=== PATIENT | female | born 1990 | race Two or more races ===

== ENCOUNTER 2017-05-04 10:24 | Emergency (ER) | payer OTHER ==
[2017-05-04 10:32] VITALS: BP 139/83; PULSE 92; TEMP 98.9; BMI 29.5
--- NOTE | 2017-05-04 10:37 | PDOC ---
History of Present Illness - General Chief Complaint: Vaginal Bleeding Stated Complaint: BLEEDING (11 WKS ) Time Seen by Provider: 05/04/17 10:36 - History of Present Illness Initial Comments: 26yo woman 11 weeks who presents with painless vaginal bleeding and mild abdominal cramping since this morning. LMP 02/13/17. Patient saw her BOAT CARP[employer] MECH[employer]IC (Dr. Elizalde) yesterday and reports everything was normal, including U/S performed. She woke-up this morning to use the restroom when she noticed a large clump of dark blood in the toilet similar to what she passes during menstruation. She went back to bed and later had a some small amount of vaginal spotting. Reports some mild cramps while driving to the ED. Also reports some intermittent spotting about 1 month ago. Denies fever, chills, back pain, dysuria. Past History - Past Medical History Allergies/Adverse Reactions: Allergies Allergy/AdvReac Type Severity Reaction Status Date / Time No Known Allergies Allergy Verified 05/04/17 10:32 Home Medications: Ambulatory Orders Vits #93/Iron Fum/FA [ Formula Tablet] 1 each PO DAILY COPD: No - Suicide/Smoking/Psychosocial Hx Smoking History: Never smoked Hx Alcohol Use: No Drug/Substance Use Hx: No Substance Use Type: None *Physical Exam - Vital Signs Last Vital Signs Temp Pulse Resp BP Pulse Ox 98.9 F 92 H 20 139/83 99 05/04/17 10:30 05/04/17 10:30 05/04/17 10:30 05/04/17 10:30 05/04/17 10:30 - Physical Exam General Appearance: Yes: Nourished, Appropriately Dressed. No: Apparent Distress Neck: positive: Supple Respiratory/Chest: positive: Lungs Clear, Normal Breath Sounds. negative: Chest Tender Cardiovascular: positive: Regular Rhythm, Regular Rate, S1, S2 Female Pelvic Exam: positive: cervical os closed, normal adnexa, normal size ovaries. negative: CMT Gastrointestinal/Abdominal: positive: Soft Extremity: negative: Pedal Edema, Swelling Neurologic: positive: Fully Oriented, Alert, Normal Mood/Affect ED Treatment Course - LABORATORY CBC & Chemistry Diagram: 05/04/17 10:24 05/04/17 10:24 - RADIOLOGY Radiology Studies Ordered: 05/04/17 12:02 EXAM#: TYPE/EXAM: RESULT: [id number] US/ <14WKS US Exam: Ultrasound <14 weeks. Indication: 11 weeks , with vaginal bleeding. Technique: Real-time grayscale sonogram of the pelvis was performed by the technologist utilizing transabdominal approach only. M-mode was utilized to assess heart rate. Limited usage of color Doppler and spectral Doppler was performed on the adnexal regions. Images are submitted for review. Comparison: None. Findings: There is a single live intrauterine gestation. Perrin-rump length of the pole measures 4.1 cm which corresponds to gestational age of 11 weeks and 0 days. heart rate measures approximately 176 bpm. The uterus measures 11.3 x 8.1 x 9.1 cm. No free fluid identified in the cul- de-sac. The ovaries are normal in size with arterial flow. The right ovary measures 3.9 x 3.8 x 1.8 cm. The left ovary measures 3.7 x 3.0 x 2.9 cm. Impression: Single live intrauterine gestation with biometry as above, concordant with the provided dates. Reported By: Ibrahima Benites DO 05/04/17 1157 Medical Decision Making - Medical Decision Making 05/04/17 11:14 26yo (1 spontaneous miscarriage, 1 Med AB) who presents 11 weeks with acute onset of painless vaginal bleeding and abdominal pain. On exam, her cervical OS was closed and vaginal vault was absent of blood. Differential includes, but not limited to threatened vs missed vs placenta previa. Will order CBC, CMP, beta-HCG, UA, U Cx. TVUS to assess fetus. 05/04/17 11:22 Repeat BP 130/77, HR 72 05/04/17 12:03 TVUS reassuring for single live intrauterine , HR 176, crown to rump length 4.1cm c/w 11 wks gestational age. No free fluid in cul-de-sac, ovaries normal size with arterial flow. No leukocytosis on CBC. CMP and T&S still pending. 05/04/17 12:16 Dr. Elizalde notified of ED visit and U/S results. Patient will f/u in Dr. Elizalde's office on Saturday at 11am to repeat ultrasound. 05/04/17 14:13 05/04/17 11:20 Blood Type O POSITIVE Antibody Screen Negative T&S revealed O positive, Antibody negative. Will not require Rhogam. All imaging and laboratory results discussed with the patient. Her vital signs are stable, and she has had no further episodes of vaginal bleeding or abdominal pain. Patient will be discharged home and follow-up at Dr. Elizalde' s office for repeat Ultrasound on 05/10. *DC/Admit/Observation/Transfer Diagnosis at time of Disposition: Vaginal bleeding before 22 weeks gestation - Discharge Dispostion Disposition: HOME Condition at time of disposition: Stable Admit: No - Referrals Referrals: Jen Elizalde MD [Staff Physician] - - Patient Instructions Printed Discharge Instructions: DI for Vaginal Bleeding During Additional Instructions: Your ultrasound was normal. Please go to Dr. Elizalde's office on Saturday, at 11AM for a repeat ultrasound. Please return to the Emergency Department if you have increased vaginal bleeding , increased abdominal pain, pelvic pain, fever, chills, or new or concerning symptoms. - Post Discharge Activity
--- NOTE | 2017-05-04 11:16 | PDOC ---
Attending Attestation - Resident Resident Name: Ruthie Lama - ED Attending Attestation I have performed the following: I have examined & evaluated the patient, The case was reviewed & discussed with the resident, I agree w/resident's findings & plan, Exceptions are as noted - HPI HPI: 05/04/17 11:04 26yo F 11 weeks (followed by Dr. Elizalde) p/w vaginal bleeding since this morning. The patient reports she is to bathroom and then noticed some dark red blood that looks like her menstrual period. She reports that she put on a pad and an hour later noticed some spotting which prompted her to come to the emergency department. She also reports suprapubic abdominal cramping that she rates at a 4 out of 10. She denies any symptoms recently of fevers, chills, chest pain, shortness of breath, headache, focal weakness or numbness. She had an evaluation with Dr. Elizalde yesterday where she was told everything was normal. The patient reports that she had a episode of vaginal spotting one month ago and that She found out she was . - Physicial Exam PE: 05/04/17 11:16 GENERAL: Awake, alert, and fully oriented, in no acute distress HEAD: No signs of trauma EYES: PERRLA, EOMI, sclera anicteric, conjunctiva clear ENT: Auricles normal inspection, hearing grossly normal, nares patent, oropharynx clear without exudates. Moist mucosa NECK: Normal ROM, supple, no lymphadenopathy, JVD, or masses LUNGS: Breath sounds equal, clear to auscultation bilaterally. No wheezes, and no crackles HEART: Regular rate and rhythm, normal S1 and S2, no murmurs, rubs or gallops ABDOMEN: Soft, nontender, normoactive bowel sounds. No guarding, no rebound. No masses RETAIL MANAGEMENT TRAINEE: agree with resident exam. EXTREMITIES: Normal range of motion, no edema. No clubbing or cyanosis. No cords, erythema, or tenderness NEUROLOGICAL: Normal speech, cranial nerves intact, negative pronator drift, 5/ 5 strength in all 4 extremities, normal sensation to light touch in all 4 extremities, normal cerebellar exam, normal gait, normal reflexes and tone SKIN: Warm, Dry, normal turgor, no rashes or lesions noted. - Medical Decision Making 05/04/17 11:00 26-year-old female 11 weeks presents with vaginal bleeding and abdominal cramping. Cervix is closed on exam. Differential includes spontaneous vs placenta previa. Blood pressure 139 systolic, will recheck. Plan: -labs -type and screen -TVUS 05/04/17 11:21 Repeat BP 130/77. Will continue to monitor 05/04/17 13:10 Labs unremarkable. Transvaginal ultrasound with normal , heart rate 170s. No evidence of placenta previa. Case discussed with Dr. Elizalde, he recommends that we discharge that patient and have her follow-up with her next week. The patient has had no further bleeding in the emergency department. Repeat blood pressure is 126/80. Currently her type and screen and urinalysis is pending. Will continue to follow up on those studies, then likely discharge. 05/04/17 14:32 UA negative for infection. Type and screen O+. Patient with no further bleeding. We'll discharge to follow-up with Dr. Elizalde next week. I discussed the physical exam findings, ancillary test results and final diagnoses with the patient. I answered all of the patient's questions. The patient was satisfied with the care received and felt comfortable with the discharge plan and treatment plan. The patient will call their primary care physician within 24 hours to arrange follow-up and will return to the Emergency Department with any new, persistent or worsening symptoms.
[2017-05-04 11:51] LABS: BASOPHIL 0.2 % (0-2.0); EOSINOPHIL 0.7 % (0-4.5); MCH 28.7 pg (25.7-33.7); MCHC 32.8 g/dl (32.0-36.0); MEAN CELL VOLUME 87.3 fl (80-96); MEAN PLT VOLUME 8.3 fl (7.5-11.1); NEUTROPHILS 67.7 % (42.8-82.8); PLATELET COUNT 175 K/MM3 (134-434); RDW 15.4 % (11.6-15.6); WHITE BLOOD COUNT 7.7 K/mm3 (4.0-10.0)
[2017-05-04 12:12] LABS: ALBUMIN 3.4 g/dl (3.4-5.0); ANION GAP 8 (8-16); CALCIUM 8.8 mg/dL (8.5-10.1); CO2 24 mmol/L (21-32); GLUCOSE,RANDOM 98 mg/dL (74-106)
[2017-05-04 12:17] LABS: ALK PHOS 54 U/L (45-117); BILIRUBIN,TOTAL 0.3 mg/dL (0.2-1.0); CREATININE 0.6 mg/dL (0.55-1.02); SGOT/AST 14 U/L (15-37); SGPT/ALT 21 U/L (12-78); TOT PROT 7.4 g/dl (6.4-8.2)
[2017-05-04 13:12] LABS: URINE APPEARANCE CLEAR; URINE BILIRUBIN NEGATIVE (NEGATIVE); URINE BLOOD NEGATIVE (NEGATIVE); URINE COLOR LTYELLOW; URINE GLUCOSE (UA) NEGATIVE (NEGATIVE); URINE KETONE NEGATIVE (NEGATIVE); URINE LEUK ESTERASE NEGATIVE (NEGATIVE); URINE NITRITE NEGATIVE (NEGATIVE); URINE PROTEIN NEGATIVE (NEGATIVE); URINE UROBILINOGEN NEGATIVE mg/dL (0.2-1.0)
[2017-05-04 18:08] LABS: URINE LEUK ESTERASE Negative (NEGATIVE)
== END 2017-05-04 14:45 | disposition home or self-care (01) ==
LOC: JER 10:24
DX: O20.8 Other hemorrhage in early pregnancy (principal); Z3A.11 11 weeks gestation of pregnancy
CPT/HCPCS: 36415; 76801-TC; 80053; 81003; 84702; 85025; 86850; 86900; 86901; 87086; 99284-25

== ENCOUNTER 2018-03-28 14:57 | Emergency (ER) | payer OTHER ==
[2018-03-28 15:05] VITALS: BP 139/82; PULSE 88; TEMP 97.1; BMI 32.3
--- NOTE | 2018-03-28 15:05 | PDOC ---
Rapid Medical Evaluation Time Seen by Provider: 03/28/18 15:01 Medical Evaluation: Allergies Allergy/AdvReac Type Severity Reaction Status Date / Time No Known Allergies Allergy Verified 11/22/17 19:05 03/28/18 15:01 Pt presents for evaluation of her scar. Pt states she gave via c -section four months ago. Approxiamtely 3 months ago the scar opened. She states she had been going to her ob for care, but the scar still hasn't closed. Reports green/yellow, foul smelling discharge from the scar. Exam: afebrile, AAOX3, NAD Orders: labs, urine Pt to proceed to the ED for further evaluation Discharge Disposition - Diagnosis Wound infection - Referrals - Patient Instructions - Post Discharge Activity
[2018-03-28 15:38] LABS: BASO % 0.4 % (0-2.0); EOS % 0.7 % (0-4.5); HEMATOCRIT 40.9 % (32.4-45.2); HEMOGLOBIN 13.8 GM/dL (10.7-15.3); LYMPH % 26.3 % (8-40); MCH 29.1 pg (25.7-33.7); MCHC 33.9 g/dl (32.0-36.0); MEAN CELL VOLUME 85.9 fl (80-96); MEAN PLT VOLUME 8.5 fl (7.5-11.1); MONO % 6.4 % (3.8-10.2); NEUT % 66.2 % (42.8-82.8); PLATELET COUNT 246 K/MM3 (134-434); RBC 4.76 M/mm3 (3.60-5.2); RDW 13.8 % (11.6-15.6); WHITE BLOOD COUNT 8.7 K/mm3 (4.0-10.0)
[2018-03-28 15:53] LABS: ALBUMIN 3.7 g/dl (3.4-5.0); ALK PHOS 69 U/L (45-117); ANION GAP 6 MMOL/L (8-16); BILIRUBIN,TOTAL 0.2 mg/dL (0.2-1); BLOOD UREA NITROGEN 11 mg/dL (7-18); CALCIUM 9.1 mg/dL (8.5-10.1); CHLORIDE 103 mmol/L (98-107); CO2 27 mmol/L (22-28); CREATININE 0.7 mg/dL (0.55-1.3); GLUCOSE,RANDOM 82 mg/dL (74-106); POTASSIUM 3.9 mmol/L (3.5-5.1); SGOT/AST 15 U/L (15-37); SGPT/ALT 20 U/L (13-61); SODIUM 137 mmol/L (136-145); TOT PROT 7.9 g/dl (6.4-8.2)
[2018-03-28 16:01] LABS: HCG,QUALITATIVE URINE Negative
[2018-03-28 16:10] LABS: URINE APPEARANCE CLEAR; URINE BILIRUBIN NEGATIVE (<2.0 mg/dL); URINE COLOR LTYELLOW; URINE GLUCOSE (UA) NEGATIVE (NEGATIVE); URINE KETONE NEGATIVE (NEGATIVE); URINE LEUK ESTERASE NEGATIVE (NEGATIVE); URINE NITRITE NEGATIVE (NEGATIVE); URINE PROTEIN NEGATIVE (NEGATIVE); URINE UROBILINOGEN NEGATIVE mg/dL (0.2-1.0)
--- NOTE | 2018-03-28 17:40 | PDOC ---
History of Present Illness - General Chief Complaint: Wound Stated Complaint: OPEN WOUND Time Seen by Provider: 03/28/18 15:01 - History of Present Illness Initial Comments: 03/28/18 17:33 The patient is a 27 year old female who is 4 months , with a significant PMH of hidradenitis who presents to the emergency department with an open wound for several months. The patient reports that her incision has not been healing well. The patient states that a portion of the incision had opened up 3 months ago and she began to experience pain about 5/10 in severity. Since then, the wound has become less deep and started to close up but not entirely. The patient reports that she was following with her OB, Dr. Elizalde, who had been packing the site and put her on antibiotics ( dicloxacillin) which she completed. The pt also reports intermittent bad odor and yellow discharge. The patient states that she has been cleaning and dressing the site at home on her own for the last 2 months and been using motrin for pain. She states she presented today at her mothers urging as the wound has not closed up yet. She denies any recent fever, chills, nausea, vomiting, diarrhea, rectal bleeding or urinary symptoms. She denies any vaginal bleed or discharge. She denies any chest pain, shortness of breath, headache or dizziness. The patient denies any other complaints. OB:Dr. Elizalde Past History - Past Medical History Allergies/Adverse Reactions: Allergies Allergy/AdvReac Type Severity Reaction Status Date / Time No Known Allergies Allergy Verified 03/28/18 15:05 Home Medications: Ambulatory Orders Cephalexin Monohydrate [Keflex -] 500 mg PO Q6H 10 Days #40 capsule 03/28/18 Sulfamethoxazole/Trimethoprim [Bactrim Ds -] 1 tab PO BID #20 tablet 03/28/18 Asthma: No Cancer: No Cardiac Disorders: No COPD: No Diabetes: No HTN: No Seizures: No Thyroid Disease: No - Suicide/Smoking/Psychosocial Hx Smoking History: Never smoked Have you smoked in the past 12 months: No Information on smoking cessation initiated: No Hx Alcohol Use: Yes (social) Drug/Substance Use Hx: No Substance Use Type: Alcohol Hx Substance Use Treatment: No Review of Systems - Review of Systems Comments:: 03/28/18 17:40 GENERAL/CONSTITUTIONAL: No fever or chills. No weakness. HEAD, EYES, EARS, NOSE AND THROAT: No change in vision. No ear pain or discharge. No sore throat. GASTROINTESTINAL:No nausea, vomiting, diarrhea or constipation. GENITOURINARY: No dysuria, frequency, or change in urination. CARDIOVASCULAR: No chest pain or shortness of breath. RESPIRATORY: No cough, wheezing, or hemoptysis. MUSCULOSKELETAL: No joint or muscle swelling or pain. No neck or back pain. SKIN: (+) incision wound. No rash NEUROLOGIC: No headache, vertigo, loss of consciousness, or change in strength/ sensation. ENDOCRINE: No increased thirst. No abnormal weight change. HEMATOLOGIC/LYMPHATIC: No anemia, easy bleeding, or history of blood clots. ALLERGIC/IMMUNOLOGIC: No hives or skin allergy. *Physical Exam - Vital Signs Last Vital Signs Temp Pulse Resp BP Pulse Ox 97.1 F L 88 17 139/82 100 03/28/18 15:02 03/28/18 15:02 03/28/18 15:02 03/28/18 15:02 03/28/18 15:02 - Physical Exam Comments: 03/28/18 17:41 GENERAL: Awake, alert, and fully oriented, in no acute distress EYES: Sclera anicteric, conjunctiva clear ENT: Oropharynx clear without exudates. Moist mucosa NECK: Normal ROM, supple LUNGS: Breath sounds equal, clear to auscultation bilaterally. No wheezes, and no crackles HEART: Regular rate and rhythm, normal S1 and S2, no murmurs, rubs or gallops ABDOMEN: Soft, nontender, normoactive bowel sounds. No guarding, no rebound. No masses EXTREMITIES: Normal range of motion, no edema. NEUROLOGICAL: Normal speech, cranial nerves intact,5/5 strength in all 4 extremities, normal sensation to light touch in all 4 extremities, normal gait SKIN: scar to inferior abdomen with 1cm area of dehisence to fat. No drainage. Surrounding skin without warmth, erythema, induration, or fluctuance. Dressing with small amount yellow fluid. Skin exam otherwise warm, Dry, normal turgor, no rashes or lesions noted. ED Treatment Course - LABORATORY CBC & Chemistry Diagram: 03/28/18 15:31 03/28/18 15:31 - ADDITIONAL ORDERS Additional order review: Laboratory Results 03/28/18 03/28/18 15:44 15:31 Sodium 137 Potassium 3.9 Chloride 103 Carbon Dioxide 27 Anion Gap 6 L BUN 11 Creatinine 0.7 Creat Clearance w eGFR > 60 Random Glucose 82 Calcium 9.1 Total Bilirubin 0.2 AST 15 ALT 20 Alkaline Phosphatase 69 Total Protein 7.9 Albumin 3.7 Urine Color Ltyellow Urine Appearance Clear Urine pH 6.0 Ur Specific [place] 1.018 Urine Protein Negative Urine Glucose (UA) Negative Urine Ketones Negative Urine Blood Negative Urine Nitrite Negative Urine Bilirubin Negative Urine Urobilinogen Negative Ur Leukocyte Esterase Negative Urine HCG, Qual Negative 03/28/18 15:31 RBC 4.76 MCV 85.9 MCHC 33.9 RDW 13.8 MPV 8.5 Neutrophils % 66.2 Lymphocytes % 26.3 D Monocytes % 6.4 Eosinophils % 0.7 Basophils % 0.4 D Medical Decision Making - Medical Decision Making 03/28/18 17:47 27yo F 4 months post- after , hydraenitis presents for evaluation of non healing wound. Pt presented today as she wanted to know if we can close it up. No systemic signs of infection. Vitals wnl. Exam consistent with mild dehiscence of wound, although pt states the wound was more open and deeper before treatment with packing/dicloxacillin. WOund appears to be healing, but more slowly. It's possible this is secondary to impaired wound healing due to hydradenitis. No leukocytosis. Given the yellow discharge on dressing, plan is to restart abx. Case discussed with Dr. Elizalde, will cover with bactrim and keflex and DC with return precations. Pt advised to f/u with Dr. Elizalde within 1 week. I discussed the physical exam findings, ancillary test results and final diagnoses with the patient. I answered all of the patient's questions. The patient was satisfied with the care received and felt comfortable with the discharge plan and treatment plan. The patient will call their primary care physician within 24 hours to arrange follow-up and will return to the Emergency Department with any new, persistent or worsening symptoms. *DC/Admit/Observation/Transfer Diagnosis at time of Disposition: Wound infection - Discharge Dispostion Disposition: HOME Condition at time of disposition: Stable Decision to Admit order: No - Prescriptions Prescriptions: Cephalexin Monohydrate [Keflex -] 500 mg PO Q6H 10 Days #40 capsule Sulfamethoxazole/Trimethoprim [Bactrim Ds -] 1 tab PO BID #20 tablet - Referrals Referrals: Jen Elizalde MD [Staff Physician] - - Patient Instructions Printed Discharge Instructions: DI for Wound Infection Additional Instructions: Take the antibiotics as prescribed Continue your daily wound dressing changes Follow up with Dr. Elizalde within 1 week Follow up with your primary doctor within 1 week Return to the emergency department if you have any new, worsening, or concerning symptoms such as fever, increased redness or discharge from your wound - Post Discharge Activity - Attestations Physician Attestion: 03/28/18 17:51 I, Dr. Ifeanyi Wolfe MD, attest that this document has been prepared under my direction and personally reviewed by me in its entirety. I further attest, that it accurately reflects all work, treatment, procedures and medical decision -making performed by me.
== END 2018-03-28 18:14 | disposition home or self-care (01) ==
LOC: JER 14:57
DX: O90.0 Disruption of cesarean delivery wound (principal); O86.09 Infection of obstetric surgical wound, other surgical site
CPT/HCPCS: 36415; 80053; 81003; 84703; 85025; 87086; 99284-25